=== PATIENT | male | born 1985 | race Caucasian/White ===

== ENCOUNTER 2018-06-30 00:29 | Outpatient (CLI) | payer OTHER ==
[2018-06-30 11:58] LABS: #Eosinphils 0.3 thou/uL (0.0-0.7); #Lymphocytes 1.7 thou/uL (1.20-3.40); #Monocytes 0.5 thou/uL (0.11-0.59); #Neutrophils 2.9 thou/uL (1.40-6.50); %Basophils 0.2 % (0.0-1.0); %Lymphocytes 32.1 % (21.0-51.0); %Monocytes 8.9 % (0.0-10.0); %Neutrophils 53.9 % (42.0-75.0); Hemoglobin 15.1 g/dL (14.0-18.0); Mean Corpuscular HGB CONC 33.5 g/dL (32.0-36.0); Mean Corpuscular Hemoglobin 30.7 pg (27.0-31.0); Mean Corpuscular Volume 91.6 fL (78.0-98.0); Mean Platelet Volume 8.3 fL (7.4-10.4); Platelet Count 218 thou/uL (130-400); RBC Distribution Width 11.7 % (11.5-14.5); Red Blood Cell (RBC) Count 4.93 mill/uL (4.70-6.10); White Blood Cell (WBC) Count 5.4 thou/uL (4.8-10.8)
[2018-06-30 12:44] LABS: Anion Gap 15 mmol/L (10-20); BUN (Urea Nitrogen) 16 mg/dL (8.9-20.6); Calc. Creatinine Clearance 0 mL/min (70-130); Calcium 9.9 mg/dL (7.8-10.44); Carbon Dioxide 25 mmol/L (22-29); Chloride 105 mmol/L (98-107); Estimated GFR-MDRD Greater than 90; Glucose 87 mg/dL (70-105); Potassium 4.2 mmol/L (3.5-5.1); Sodium 141 mmol/L (136-145)
== END 2018-06-30 00:30 | disposition home or self-care (01) ==
LOC: LABBT 00:29
PROVIDERS: ATTEND Specialist
DX: Z01.812 Encounter for preprocedural laboratory examination (principal); K40.90 Unilateral inguinal hernia, without obstruction or gangrene, not specified as recurrent
CPT/HCPCS: 80048; 85025

== ENCOUNTER 2018-07-02 09:28 | Day surgery (SDC) | payer OTHER ==
[2018-06-30 09:49] VITALS: BMI 21.8
--- NOTE | 2018-06-30 15:43 | HP ---
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 The patient reported a prolonged coughing episode, noticed a bulge in his left groin, is seen by Dr. Hughes, appreciated to have a left inguinal hernia and referred for evaluation. The patient has environmental allergies, been taking Claritin, is effectively helping his coughing episode. SOCIAL HISTORY: Tobacco, none. Alcohol, none. MEDICATIONS: Routinely. PAST SURGICAL HISTORY: Noncontributory. PAST MEDICAL HISTORY: Noncontributory. ALLERGIES: NONE. REVIEW OF SYSTEMS: Ten-point noncontributory. The patient is with 4 children. 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 PHYSICAL EXAMINATION: VITAL SIGNS: Weight 176 pounds, height 74 inches, 22 BMI, blood pressure 115/68, pulse 73, temperature 98 degrees. HEAD, EARS, EYES, NOSE, AND THROAT: Unremarkable. LUNGS: Clear to auscultation. CARDIAC: Regular rate and rhythm without murmur or gallop. ABDOMEN: Soft and nontender. EXTREMITIES: Unremarkable. NEUROLOGICAL: Intact. SKIN: Normal. : Testicles, normal. Scrotum, normal. Right groin without evident hernia, although it is tender. Left groin is very tender and palpable hernia on Valsalva standing. ASSESSMENT AND PLAN: Left inguinal hernia. RECOMMENDED: Robot repair of left inguinal hernia and if appreciated laparoscopically (although unlikely), mesh repair of right inguinal hernia. Risks of infection, bleeding, reoperation, chronic pain. Questions answered. I have discussed with the patient. We will plan this as an outpatient on the date that he chooses. He will call the office to schedule. Job ID: [id number]
[2018-07-02] MEDS ORDERED: PROPOFOL 200 MG/20 ML VIAL ONE (10:30)
[2018-07-02] MEDS ORDERED: Rocuronium Bromide 10 MG/ML (10ML VIAL) ONE (10:30)
[2018-07-02] MEDS ORDERED: Dexamethasone 20 MG/5 ML VIAL ONE (10:30)
[2018-07-02] MEDS ORDERED: Lidocaine 1% PF 5 ML VIAL ONE (10:30)
[2018-07-02] MEDS ORDERED: Glycopyrrolate 0.2 MG/ML 5 ML SYRINGE ONE (10:30)
[2018-07-02] MEDS ORDERED: Ondansetron PF 4 MG/2 ML Vial ONE (10:30)
[2018-07-02] MEDS ORDERED: Fentanyl 100 MCG/2 ML VIAL ONE ×2 (10:47→13:44)
[2018-07-02] MEDS ORDERED: Bupivacaine/Epinephrine 0.25% 30 ML VIAL ONE (10:48)
[2018-07-02] MEDS ORDERED: Ketorolac Tromethamine 30 MG/ML VIAL ONE (10:56)
[2018-07-02] MEDS ORDERED: HYDROmorphone 2 MG/ML VIAL ONE (11:57)
[2018-07-02] MEDS ORDERED: Meperidine HCl/PF 25 MG/ML VIAL ONE (13:42)
--- NOTE | 2018-07-02 18:51 | OP ---
DATE OF PROCEDURE: 07/02/2018 PREOPERATIVE DIAGNOSIS: Left inguinal hernia. POSTOPERATIVE DIAGNOSIS: Left inguinal hernia. PROCEDURES PERFORMED: Robot laparoscopic large 3DMax repair, left inguinal hernia, indirect. ANESTHESIA: General with local 0.5% Marcaine with epinephrine 30 mL. DESCRIPTION OF PROCEDURE: The patient was taken to the operating room, under general anesthesia, Coello catheter was placed at the beginning of the procedure and removed at the end, 180 mL left in the bladder to expedite discharge and voiding. Abdomen was prepared with ChloraPrep and draped in routine fashion. Local anesthetic was infiltrated into the skin and subcutaneous tissue about the operative sites. Supraumbilical left of midline incision made. Pneumoperitoneum to 15 mmHg obtained with a Veress needle, replaced with an 11 mm balloon port and via laparoscope inserted and bilateral mid lateral abdominal incision was made and 8 mm port was placed. The robot was docked, positioned, and robotic inguinal hernia repair undertaken. On the right side, inguinal hernia was not present. Left-side, indirect hernia appreciated. Dissection was carried out on the left, freed the peritoneal flap from the anterior superior iliac spine to the midline, freeing it, dissecting it free from the abdominal wall, cord structures, preserving the inferior epigastric vessels on the left and dissecting the hernia sac free from the cord structures. About 8 centimeter of cord structures were skeletonized of the hernia sac and peritoneum, Tito ligament identified. The 3DMax large mesh was placed intra-abdominally and positioned over the pelvis, securing the mesh to Tito ligament with 2-0 Vicryl and to the abdominal wall anterior to the left of the inferior epigastric vessels with 3-0 Vicryl suture. Once the mesh was properly positioned and ensured to cover the pelvic floor and hernia, the peritoneum was approximated with continuous suture of 3-0 laparoscopic suture. Once this was completed, a good hernia repair was undertaken. Pneumoperitoneum reduced and fascia was approximated with 0 Vicryl UR needle and skin with interrupted subdermal 4-0 Monocryl after evacuating pneumoperitoneum, ensuring good hemostasis. Job ID: [id number]
== END 2018-07-02 16:50 | disposition home or self-care (01) ==
LOC: SDC 09:28
PROVIDERS: ATTEND Specialist
PROC: 0YU64JZ Supplement Left Inguinal Region with Synthetic Substitute, Percutaneous Endoscopic Approach (ICD-10-PCS; principal; 2018-07-02)
DX: K40.90 Unilateral inguinal hernia, without obstruction or gangrene, not specified as recurrent (principal)
CPT/HCPCS: C1781; J0131; J1100; J1170; J1885; J2001; J2175; J2405; J2704; J3010

== ENCOUNTER 2024-01-06 07:35 | Outpatient (CLI) | payer BC ==
[2024-01-06] MEDS ORDERED: Iopamidol 370 76% 100 ML VIAL ONE (10:46)
== END 2024-01-06 07:36 | disposition home or self-care (01) ==
LOC: CT 07:35
PROVIDERS: ATTEND Internal Medicine
DX: C62.90 Malignant neoplasm of unspecified testis, unspecified whether descended or undescended (principal); K76.9 Liver disease, unspecified
CPT/HCPCS: 71260; 74177; Q9967

== ENCOUNTER 2024-05-04 13:34 | Outpatient (CLI) | payer BC ==
[~2024-05-04 13:34] MED LIST: Iopamidol 370 76% 100 ML VIAL ONE
== END 2024-05-04 13:35 | disposition home or self-care (01) ==
LOC: CT 13:34
PROVIDERS: ATTEND Internal Medicine
DX: C62.90 Malignant neoplasm of unspecified testis, unspecified whether descended or undescended (principal)
CPT/HCPCS: 71260; 74177

== ENCOUNTER 2024-12-11 07:48 | Outpatient (CLI) | payer BC ==
[2024-12-11] MEDS ORDERED: Iopamidol 370 76% 100 ML VIAL ONE (15:29)
== END 2024-12-11 07:49 | disposition home or self-care (01) ==
LOC: CT 07:48
PROVIDERS: ATTEND Internal Medicine
DX: C62.92 Malignant neoplasm of left testis, unspecified whether descended or undescended (principal)
CPT/HCPCS: 74177